=== PATIENT | male | born 1995 | race Caucasian/White ===

== ENCOUNTER 2018-10-06 09:47 | Emergency (ER) | payer SELFPAY ==
[2018-10-06] MEDS ORDERED: ONDANSETRON 4 MG/2 ML VIAL ONE (10:15)
[2018-10-06] MEDS ORDERED: MORPHINE 2 MG/ML SYR ONE (10:15)
[2018-10-06] MEDS ORDERED: FAMOTIDINE 20 MG/2 ML VIAL IV ONE (10:16)
[2018-10-06] MEDS ORDERED: NA CHLORIDE 0.9% 1,000 ML ONE (10:16)
[2018-10-06 10:25] LABS: Absolute Lymphocytes (CBC) 2.4 K/uL (0.7-4.9); Basophils % 0.2 % (0-1.3); Eosinophils % 0.2 % (0-4.4); Hematocrit 41.9 % (39.6-49.0); Lymphocytes % 24.2 % (15.3-44.8); MPV 8.8 fL (7.6-11.3); Monocytes % 5.6 % (3.3-12.3); RBC Red Blood Cell Count 4.54 M/uL (4.33-5.43)
[2018-10-06 10:39] LABS: ALT/SGPT 19 U/L (12-78); AST/SGOT 23 U/L (15-37); Albumin 4.2 g/dL (3.4-5.0); Alkaline Phosphatase 77 U/L (45-117); BUN Blood Urea Nitrogen 20 mg/dL (7-18); Bicarbonate 25 mmol/L (21-32); Bilirubin Direct 0.2 mg/dL (0-0.2); Bilirubin Total 0.8 mg/dL (0.2-1.0); CKMB Creatine Kinase MB 3.2 ng/mL (0.3-3.6); Creatine Phosphokinase 299 U/L (39-308); Glucose Level 111 mg/dL (74-106); Lipase 124 U/L (73-393); Potassium 3.1 mmol/L (3.5-5.1); Protein, Total 7.6 g/dL (6.4-8.2); Sodium Level 142 mmol/L (136-145)
[2018-10-06] MEDS ORDERED: PROMETHAZINE 25 MG/ML VIAL ONE (10:45)
--- NOTE | 2018-10-06 11:40 | RAD REPORT ---
EXAM DESCRIPTION: CTAbdomen Pelvis W Contrast - 10/06/2018 11:28 am CLINICAL HISTORY: Abdominal pain. Abd pain;Nausea / vomiting COMPARISON: No comparisons TECHNIQUE: Biphasic CT imaging of the abdomen and pelvis was performed with 100 ml non-ionic IV cont rast. All CT scans are performed using dose optimization technique as appropriate and may include automated exposure control or mA/KV adjustment according to patient size. FINDINGS: The lung bases are clear. The liver, spleen, pancreas, adrenal glands and kidneys are within normal limits. No bowel obstruction, free air, free fluid or abscess. The appendix is normal. No evidence of signi ficant lymphadenopathy. No suspicious bony findings. Disc bulge is present at L5-S1. IMPRESSION: No acute intra-abdominal or pelvic finding.
--- NOTE | 2018-10-06 12:25 | ER ---
Nurse's Notes [facility] Name: Basilio Alexander Age: 23 yrs Sex: Male : 1995 Arrival Date: 10/06/2018 Time: 09:48 Bed 5 Private MD: Diagnosis: Nausea and vomiting Presentation: 10/06 09:52 Presenting complaint: EMS states: Pt was out weed eating and began having abd pain, la1 sweating, vomiting. Transition of care: patient was not received from another setting of care. Onset of symptoms was October 06, 2018. Risk Assessment: Do you want to hurt yourself or someone else? Patient reports no desire to harm self or others. Initial Sepsis Screen: Does the patient meet any 2 criteria? No. Patient's initial sepsis screen is negative. Does the patient have a suspected source of infection? No. Patient's initial sepsis screen is negative. Care prior to arrival: Medication(s) given: Normal saline infusion, 1000 mL, zofran 4 mg, IV initiated. 20 GA, in the left antecubital area. 09:52 Method Of Arrival: EMS: [facility] la1 09:52 Acuity: TONYA 3 la1 Historical: - Allergies: 09:54 No Known Allergies; la1 - PMHx: 09:54 None; la1 - Immunization history:: Adult Immunizations up to date. - Social history:: Smoking status: Patient uses tobacco products, smokes one pack cigarettes per day. - Ebola Screening: : No symptoms or risks identified at this time. Screenin:55 Abuse screen: Denies threats or abuse. Nutritional screening: No deficits noted. la1 Tuberculosis screening: No symptoms or risk factors identified. Fall Risk None identified. Assessment: 09:56 General: Appears in no apparent distress. Behavior is calm, cooperative. Pain: la1 Complains of pain in left upper quadrant. Neuro: Level of Consciousness is awake, alert, obeys commands, Oriented to person, place, time, situation. Cardiovascular: Capillary refill < 3 seconds Patient's skin is warm and dry. Respiratory: Airway is patent Respiratory effort is even, unlabored, Respiratory pattern is regular, symmetrical. GI: Abdomen is flat. : No signs and/or symptoms were reported regarding the genitourinary system. 12:22 Reassessment: Patient appears in no apparent distress at this time. No changes from la1 previously documented assessment. Patient and/or family updated on plan of care and expected duration. Pain level reassessed. Patient is alert, oriented x 3, equal unlabored respirations, skin warm/dry/pink. 12:39 Reassessment: Pt tolerating PO. la1 Vital Signs: 09:54 BP 116 / 75; Pulse 89; Resp 16; Temp 97.4(O); Pulse Ox 98% on R/A; Weight 73.03 kg; la1 Height 6 ft. 1 in. (185.42 cm); 11:08 BP 129 / 90; Pulse 50; Resp 16; Pulse Ox 98% on R/A; la1 12:39 BP 116 / 74; Pulse 55; Resp 16; Pulse Ox 98% on R/A; la1 09:54 Body Mass Index 21.24 (73.03 kg, 185.42 cm) la1 ED Course: 09:48 Patient arrived in ED. ss 09:49 Tenzin Hampton PA is PHCP. cp 09:49 Roberth Vázquez MD is Attending Physician. cp 09:52 Scott Varma RN is Primary Nurse. la1 09:53 Triage completed. la1 09:55 Arm band placed on right wrist. la1 09:55 No provider procedures requiring assistance completed. Maintain EMS IV. Dressing la1 intact. Good blood return noted. Site clean \T\ dry. Gauge \T\ site: 20g lac. 10:17 Inserted saline lock: 18 gauge in right antecubital area, using aseptic technique. la1 10:18 Placed in gown. Call light in reach. Side rails up X 1. Pulse ox on. NIBP on. la1 11:28 CT completed. Patient tolerated procedure well. Patient moved to CT via wheelchair. sj Patient moved back from CT. 11:30 CT Abd/Pelvis - IV Contrast Only In Process Unspecified. EDMS 12:40 IV discontinued, intact, bleeding controlled, No redness/swelling at site. Pressure la1 dressing applied. Administered Medications: 09:57 Drug: NS 0.9% 1000 ml Route: IV; Rate: 1 bolus; Site: left antecubital; la1 11:43 Follow up: IV Status: Completed infusion la1 10:16 Drug: Zofran 4 mg Route: IVP; Site: right antecubital; la1 11:43 Follow up: Response: No adverse reaction la1 10:16 Drug: Pepcid 20 mg Route: IVP; Site: right antecubital; la1 12:21 Follow up: Response: No adverse reaction la1 10:16 Drug: morphine 2 mg Route: IVP; Site: right antecubital; la1 11:44 Follow up: Response: No adverse reaction; Pain is decreased la1 10:22 CANCELLED (Physician Discretion): Zofran 4 mg IVP once; over 2 minutes cp 10:36 Drug: Phenergan 25 mg Route: IVP; Site: left antecubital; la1 11:44 Follow up: Response: No adverse reaction la1 Outcome: 12:24 Discharge ordered by MD. cp 12:39 Discharged to home ambulatory. la1 12:39 Condition: stable 12:39 Discharge instructions given to patient, Instructed on discharge instructions, follow up and referral plans. medication usage, Demonstrated understanding of instructions, follow-up care, medications, Prescriptions given X 2. 12:40 Patient left the ED. la1 Signatures: Dispatcher [employer] Paola Waterman Shelby, RN RN ss Scott Varma RN RN la1 Tenzin Hampton PA PA cp
--- NOTE | 2018-10-06 12:25 | EDPHYS ---
Physician Documentation [facility] Name: Basilio Alexander Age: 23 yrs Sex: Male : 1995 Arrival Date: 10/06/2018 Time: 09:48 Bed 5 Private MD: ED Physician Roberth Vázquez HPI: 10/06 10:05 This 23 yrs old Male presents to ER via EMS with complaints of nausea and cp vomiting. 10:05 The patient presents to the emergency department with nausea, with "dry heaves", cp vomiting, that is continuous, described as bilious. 10:05 Onset: The symptoms/episode began/occurred suddenly, today. Possible causes: working cp outside in heat. Associated signs and symptoms: Pertinent positives: abdominal pain, Pertinent negatives: constipation, diarrhea, fever, GI bleeding. Severity of symptoms: in the emergency department the symptoms are unchanged despite EMS interventions. Historical: - Allergies: 09:54 No Known Allergies; la1 - PMHx: 09:54 None; la1 - Immunization history:: Adult Immunizations up to date. - Social history:: Smoking status: Patient uses tobacco products, smokes one pack cigarettes per day. - Ebola Screening: : No symptoms or risks identified at this time. ROS: 10:15 Constitutional: Positive for poor PO intake, Negative for body aches, chills, fever. cp 10:15 Eyes: Negative for injury, pain, redness, and discharge. cp 10:15 ENT: Negative for drainage from ear(s), ear pain, sore throat, difficulty swallowing, difficulty handling secretions. 10:15 Cardiovascular: Negative for chest pain. 10:15 Respiratory: Negative for cough, shortness of breath, wheezing. 10:15 Abdomen/GI: Positive for abdominal pain, nausea and vomiting, Negative for diarrhea, constipation, black/tarry stool. 10:15 Back: Negative for pain at rest, pain with movement. 10:15 : Negative for urinary symptoms, testicular pain 10:15 Skin: Negative for rash. 10:15 Neuro: Negative for altered mental status, dizziness, headache, numbness, weakness. 10:15 All other systems are negative. Exam: 10:22 Constitutional: The patient appears in no acute distress, alert, awake, non-toxic, well cp developed, well nourished, uncomfortable. 10:22 Head/Face: Normocephalic, atraumatic. cp 10:22 Eyes: Periorbital structures: appear normal, Pupils: equal, round, and reactive to light and accomodation, Conjunctiva: normal, no exudate, no injection, Sclera: no appreciated abnormality, Lids and lashes: appear normal, bilaterally. 10:22 ENT: External ear(s): are unremarkable, Ear canal(s): are normal, clear, TM's: are normal, Nose: is normal, Mouth: Lips: moist, Oral mucosa: pink and intact, moist, Posterior pharynx: is normal, airway is patent, no erythema, no exudate. 10:22 Neck: ROM/movement: is normal, is supple, without pain, no range of motions limitations, no meningismus, no nuchal rigidity. 10:22 Chest/axilla: Inspection: normal, Palpation: is normal, no crepitus, no tenderness. 10:22 Cardiovascular: Rate: normal, Rhythm: regular. 10:22 Respiratory: the patient does not display signs of respiratory distress, Respirations: normal, no use of accessory muscles, no retractions, no splinting, no tachypnea, labored breathing, is not present, Breath sounds: are clear throughout, no decreased breath sounds, no stridor, no wheezing. 10:22 Abdomen/GI: Inspection: abdomen appears normal, Bowel sounds: active, all quadrants, Palpation: soft, in all quadrants, severe abdominal tenderness, in all quadrants, rebound tenderness, is not appreciated, voluntary guarding, is elicited in all quadrants. 10:22 Back: CVA tenderness, is absent. 10:22 Skin: no rash present. 10:22 Neuro: Orientation: to person, place \\T\\ time. Mentation: is normal, Cerebellar function: is grossly normal, Motor: moves all fours, strength is normal, Sensation: is normal. Vital Signs: 09:54 BP 116 / 75; Pulse 89; Resp 16; Temp 97.4(O); Pulse Ox 98% on R/A; Weight 73.03 kg; la1 Height 6 ft. 1 in. (185.42 cm); 11:08 BP 129 / 90; Pulse 50; Resp 16; Pulse Ox 98% on R/A; la1 12:39 BP 116 / 74; Pulse 55; Resp 16; Pulse Ox 98% on R/A; la1 09:54 Body Mass Index 21.24 (73.03 kg, 185.42 cm) la1 MDM: 09:52 Patient medically screened. 12:23 Data reviewed: vital signs, nurses notes, lab test result(s), radiologic studies, CT cp scan. 12:23 Counseling: I had a detailed discussion with the patient and/or guardian regarding: the cp historical points, exam findings, and any diagnostic results supporting the discharge/admit diagnosis, lab results, radiology results, to return to the emergency department if symptoms worsen or persist or if there are any questions or concerns that arise at home. Response to treatment: the patient's symptoms have markedly improved after treatment, and as a result, I will discharge patient. Special discussion: Based on the patient's Hx, exam, and Dx evaluation, there is no indication for emergent surgery or inpatient Tx. It is understood by the patient/guardian that if the Sx's persist or worsen they need to return immediately for re-evaluation. 12:23 ED course: VSS. Nausea and pain markedly improved. Vomiting resolved. Will discharge to home for continued monitoring. 10/06 09:56 Order name: Basic Metabolic Panel 10/06 09:56 Order name: CBC with Diff 10/06 09:56 Order name: Creatinine for Radiology 10/06 09:56 Order name: Hepatic Function; Complete Time: 11:03 10/06 09:56 Order name: Lipase; Complete Time: 11:03 10/06 09:56 Order name: Magnesium; Complete Time: 11:03 10/06 09:56 Order name: CK; Complete Time: 11:03 10/06 09:56 Order name: Ckmb; Complete Time: 11:03 10/06 09:56 Order name: Urine Microscopic Only 10/06 09:57 Order name: Basic Metabolic Panel; Complete Time: 11:03 EDAL 10/06 11:01 Interpretation: Normal except: K 3.1; CL 109; GLUC 111; BUN 20. 10/06 09:57 Order name: CBC with Automated Diff; Complete Time: 11:03 EDAL 10/06 09:57 Order name: Creatinine (Radiology Only); Complete Time: 11:03 EDAL 10/06 10:21 Order name: UDS 10/06 12:25 Order name: Urine Dipstick--Ancillary (enter results) bd 10/06 09:56 Order name: IV Saline Lock; Complete Time: 10:17 cp 10/06 09:56 Order name: Labs collected and sent; Complete Time: 10:17 cp 10/06 09:56 Order name: IV; Complete Time: 10:16 cp 10/06 09:56 Order name: Urine Dipstick-Ancillary (obtain specimen); Complete Time: 12:20 10/06 11:12 Order name: CT Abd/Pelvis - IV Contrast Only; Complete Time: 11:45 cp 10/06 11:45 Interpretation: Report reviewed. cp Administered Medications: 09:57 Drug: NS 0.9% 1000 ml Route: IV; Rate: 1 bolus; Site: left antecubital; la1 11:43 Follow up: IV Status: Completed infusion la1 10:16 Drug: Zofran 4 mg Route: IVP; Site: right antecubital; la1 11:43 Follow up: Response: No adverse reaction la1 10:16 Drug: Pepcid 20 mg Route: IVP; Site: right antecubital; la1 12:21 Follow up: Response: No adverse reaction la1 10:16 Drug: morphine 2 mg Route: IVP; Site: right antecubital; la1 11:44 Follow up: Response: No adverse reaction; Pain is decreased la1 10:22 CANCELLED (Physician Discretion): Zofran 4 mg IVP once; over 2 minutes cp 10:36 Drug: Phenergan 25 mg Route: IVP; Site: left antecubital; la1 11:44 Follow up: Response: No adverse reaction la1 Disposition: 10/07 07:47 Co-signature as Attending Physician, Roberth Vázquez MD I agree with the assessment and kdr plan of care. Disposition: 10/06/18 12:24 Discharged to Home. Impression: Nausea and vomiting. - Condition is Stable. - Discharge Instructions: Dehydration, Adult, Nausea and Vomiting, Adult. - Prescriptions for Pepcid 20 mg Oral Tablet - take 1 tablet by ORAL route every 12 hours for 10 days; 20 tablet. Zofran 4 mg Oral Tablet - take 1 tablet by ORAL route every 12 hours As needed; 20 tablet. - Medication Reconciliation Form, Thank You Letter, Antibiotic Education, Prescription Opioid Use form. - Follow up: Private Physician; When: 1 - 2 days; Reason: Recheck today's complaints. - Problem is new. - Symptoms have improved. Signatures: Dispatcher [employer] EDRoberth Escobar MD MD [facility] Scott Varma RN RN la1 Tenzin Hampton PA PA cp Corrections: (The following items were deleted from the chart) 10/06 10:22 10:21 Zofran 4 mg IVP once; over 2 minutes ordered. cp cp 12:40 12:24 10/06/2018 12:24 Discharged to Home. Impression: Nausea and vomiting. Condition la1 is Stable. Forms are Medication Reconciliation Form, Thank You Letter, Antibiotic Education, Prescription Opioid Use. Follow up: Private Physician; When: 1 - 2 days; Reason: Recheck today's complaints. Problem is new. Symptoms have improved. cp
[2018-10-06 12:28] LABS: Urine Blood NEGATIVE (NEG); Urine Glucose NEGATIVE (NEG); Urine Protein NEGATIVE (NEG); Urine Specific Gravity 1.015 (1.005-1.030); Urine pH 6.5 (5.0-7.0)
[2018-10-06 12:33] LABS: Barbiturates NEGATIVE (NEGATIVE); Benzodiazepines NEGATIVE (NEGATIVE); Cocaine NEGATIVE (NEGATIVE); METHAMPHETAM NEGATIVE (NEGATIVE); Methadone NEGATIVE (NEGATIVE); Opiates POSITIVE (NEGATIVE); Phencyclidine NEGATIVE (NEGATIVE); THC Cannibis NEGATIVE (NEGATIVE)
[2018-10-06 12:39] LABS: Urine Bacteria <20 /HPF (NONE SEEN); Urine Culture Reflex Order NOT NEEDED; Urine Mucus 2+ /HPF (NONE SEEN); Urine RBC <5 /HPF (NONE SEEN)
== END 2018-10-06 12:40 | disposition home or self-care (01) ==
LOC: ER 09:47
DX: R11.2 Nausea with vomiting, unspecified (principal); F17.210 Nicotine dependence, cigarettes, uncomplicated
CPT/HCPCS: 36415; 74177; 80048; 80076; 80307; 81003; 81015; 82550; 82553; 83690; 83735; 85025; 99284; J2270; J2405; J2550; J7030; Q9967